=== PATIENT | female | born 1990 | race Two or more races ===

== ENCOUNTER 2018-02-28 10:31 | Emergency (ER) | payer SELFPAY ==
[~2018-02-28] VITALS: Ht 157.5 cm; Wt 70.3 kg
[2018-02-28 10:39] VITALS: BP 109/85
[2018-02-28] MEDS ORDERED: IBUPROFEN 800 MG TAB PO ONE (11:15)
[2018-02-28] MEDS ORDERED: CYCLOBENZAPRINE HCL 10 MG TAB PO ONE (11:15)
== END 2018-02-28 12:23 | disposition home or self-care (01) ==
LOC: ER 10:31
DX: S13.4XXA Sprain of ligaments of cervical spine, initial encounter (principal); V43.52XA Car driver injured in collision with other type car in traffic accident, initial encounter; Y93.89 Activity, other specified; Y99.8 Other external cause status; Y92.410 Unspecified street and highway as the place of occurrence of the external cause
CPT/HCPCS: 72125

== ENCOUNTER 2020-12-01 20:42 | Emergency (ER) | payer OTHER ==
[~2020-12-01] VITALS: Ht 157.5 cm; Wt 68.0 kg
[2020-12-01] MEDS ORDERED: KETOROLAC TROMETH 30 MG/ML 1ML VIAL IV ONE (21:30)
[2020-12-01] MEDS ORDERED: HYDROcodone-ACET 7.5/325MG TAB PO ONE (21:30)
[2020-12-02 03:05] VITALS: BP 111/69
== END 2020-12-02 02:22 | disposition home or self-care (01) ==
LOC: ER 20:43
DX: S93.601A Unspecified sprain of right foot, initial encounter (principal); S70.11XA Contusion of right thigh, initial encounter; S80.11XA Contusion of right lower leg, initial encounter; W18.39XA Other fall on same level, initial encounter; Y93.89 Activity, other specified; Y92.89 Other specified places as the place of occurrence of the external cause; Y99.8 Other external cause status
CPT/HCPCS: 72170; 73552; 73590; 73620; 96374; 99284; J1885

== ENCOUNTER 2021-12-06 05:42 | Emergency (ER) | payer MEDICAID, OTHER ==
[~2021-12-06] VITALS: Ht 157.5 cm; Wt 79.4 kg
[2021-12-06] MEDS ORDERED: methylPREDNISolone SOD SUCC 125 MG/2 ML VL IM ONE (06:00)
[2021-12-06] MEDS ORDERED: CIP03OS RIGHTEYE (07:20)
[2021-12-06 07:24] VITALS: BP 125/88
== END 2021-12-06 07:30 | disposition home or self-care (01) ==
LOC: ER 05:42
DX: S00.261A Insect bite (nonvenomous) of right eyelid and periocular area, initial encounter (principal); W57.XXXA Bitten or stung by nonvenomous insect and other nonvenomous arthropods, initial encounter; Y93.89 Activity, other specified; Y92.89 Other specified places as the place of occurrence of the external cause; Y99.8 Other external cause status